=== PATIENT | male | born 1965 | race Two or more races ===

== ENCOUNTER 2016-07-29 15:31 | Emergency (ER) | payer OTHER ==
--- NOTE | 2016-07-29 16:20 | UC ---
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 - Allergies/Home Medications Allergies/Adverse Reactions: Allergies Allergy/AdvReac Type Severity Reaction Status Date / Time No Known Allergies Allergy Verified 07/29/16 15:58 Home Medications: Home Medications Pantoprazole TAB (NF) [Protonix TAB (NF)] 20 mg PO BID 07/29/16 [History Confirmed 07/29/16] PMH/Surg Hx/FS Hx/Imm Hx Endocrine History Of: Reports: Thyroid Disease - hypo Denies: Diabetes Cardiovascular History Of: Reports: Cardiac Disorders - tachy, Hypertension Denies: Pacemaker/ICD, Myocardial Infarction Psychological History Of: Reports: Depression Other History Of: Negative For: Anticoagulant Therapy - Surgical History Surgical History: Yes Surgery Procedure, Year, and Place: reveal LINQ monitoring tech implanted (Dr. 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 - Family History Known Family History: Positive: Hypertension, Diabetes, Other - unsure of hx on his father's side Negative: Cardiac Disease - Social History Alcohol Use: None Substance Use Type: None Smoking Status (MU): Heavy Every Day Tobacco Smoker Type: Cigarettes Amount Used/How Often: 1/2 pack day Length of Time of Smoking/Using Tobacco: started at age 15 Have You Smoked in the Last Year: Yes Household Exposure Type: Cigarettes - Immunization History Most Recent Influenza Vaccination: 2015 Most Recent Tetanus Shot: within last 5 years Most Recent Pneumonia Vaccination: none Review of Systems Constitutional: Negative Skin: Negative Eyes: Negative ENT: Ear Ache, Nasal Discharge Respiratory: Negative Cardiovascular: Negative Gastrointestinal: Abdominal Pain - chronic /in process of work up Genitourinary: Negative Motor: Negative Neurovascular: Negative Musculoskeletal: Negative Neurological: Negative Psychological: Negative All Other Systems Reviewed And Are Negative: Yes Physical Exam Triage Information Reviewed: Yes Appearance: Well-Appearing, No Pain Distress, Well-Nourished Vital Signs: Initial Vital Signs Temp 99.2 F 07/29/16 15:48 Pulse 89 07/29/16 15:48 Resp 16 07/29/16 15:48 BP 156/95 07/29/16 15:48 Pulse Ox 98 07/29/16 15:48 Eyes: Positive: Conjunctiva Clear ENT: Positive: Nasal congestion, Nasal drainage, TM bulging - r/l, TM dull - l, TM red - right. Negative: Hearing grossly normal - decreased hearing left, Tonsillar swelling, Tonsillar exudate, Trismus, Muffled/hoarse voice Neck: Positive: Supple, Nontender Respiratory: Positive: Lungs clear, Normal breath sounds, No respiratory distress Cardiovascular: Positive: RRR, No Murmur Musculoskeletal: Positive: ROM Intact, No Edema Neurological: Positive: Alert Psychological Exam: Normal Ear Complaint Course/Dx - Differential Dx/Diagnosis Provider Diagnoses: right otitis media. left seous otitis media Discharge - Discharge Plan Condition: Stable Disposition: HOME Prescriptions: Cefuroxime Axetil [Ceftin 250 MG] 250 mg PO BID #20 tab Mometasone NASAL (NF) [Nasonex (NF)] 2 spray BOTH NARES DAILY #1 nasal.spr Patient Education Materials: Otitis Media (ED), Serous Otitis Media (ED) Additional Instructions: recheck in 2 weeks if hearing not back to normal
[2016-07-29 17:12] VITALS: BP 139/84
== END 2016-07-29 17:00 | disposition home or self-care (01) ==
LOC: UCCORT 15:31
DX: H66.91 Otitis media, unspecified, right ear (principal); H65.92 Unspecified nonsuppurative otitis media, left ear; Z95.818 Presence of other cardiac implants and grafts; F17.210 Nicotine dependence, cigarettes, uncomplicated
CPT/HCPCS: 99212; G0463